=== PATIENT | female | born 1955 | race Caucasian/White ===

== ENCOUNTER 2016-08-14 08:20 | Day surgery (SDC) | payer OTHER ==
[~2016-08-14] VITALS: Ht 162.6 cm; Wt 64.5 kg
[~2016-08-14 08:20] MED LIST: CHOL200047 PO; DICL50TA7 PO; MULT-666 PO; Sodium Chloride LOK Flush 10 mL Syringe IV PRN; fentaNYL-PF 50 mCg/mL 2 mL Inj IVPUSH PRN
[2016-08-14 08:48] VITALS: BP 138/75; PULSE 60; RESP 17; O2SAT 99
[2016-08-14] MEDS: 0.9% Sodium Chloride 1,000 ML IV SCH ×2 (09:58→10:02)
[2016-08-14 10:11] VITALS: BP 110/67; PULSE 67; RESP 14; O2SAT 97
[2016-08-14 10:21] VITALS: BP 126/71; PULSE 56; RESP 12; O2SAT 98
[2016-08-14 10:31] VITALS: BP 135/69; PULSE 59; RESP 12; O2SAT 99
--- NOTE | 2016-08-14 10:31 | ENDO ---
[address] [address] ENDOSCOPY PROCEDURE PATIENT: SAHNNA ARMSTRONG : 1955 MR#: [id number] ADMIT: 08/14/2016 JOB ID: [id number] PROCEDURE: Colonoscopy. INDICATION: Screening. ASA CLASSIFICATION: 2. MALLAMPATI SCORE: 2. MEDICATIONS: Versed 5 mg, fentanyl 100 mcg. INSTRUMENT USED: PCF-H180-AL. PREPARATION QUALITY: Good. PROCEDURE DETAILS: After informed consent was obtained, the patient was brought into the GI suite, where she was placed on oxygen via nasal cannula and monitored with continuous pulse oximeter, telemetry, and blood pressure monitoring. A time-out was performed. Then, she was placed in a left lateral decubitus position and medications were administered for sedation. Digital rectal exam was performed, which was unremarkable. The colonoscope was then inserted into the rectum and advanced under direct visualization to the cecum, which was identified by the presence of the ileocecal valve and appendiceal orifice. Once the cecum was reached, the colonoscope was withdrawn back to the rectum as the mucosa and lumen were examined. In the rectum, retroflexion was performed. Following retroflexion, remaining air in the rectum was suctioned, and procedure was completed. FINDINGS: 1. Scattered diverticula were seen throughout the entire colon. 2. In the transverse colon, there was an approximately 4 mm sessile polyp that was removed with a cold snare. IMPRESSION: 1. Transverse colon polyp. 2. Pandiverticulosis. RECOMMENDATIONS: 1. Fiber rich diet. 2. Repeat colonoscopy pending polyp pathology results. COMPLICATIONS: None. ESTIMATED BLOOD LOSS: Less than 5 mL.
[2016-08-14 10:40] VITALS: BP 140/72; PULSE 64; RESP 14; O2SAT 98
[2016-08-14 10:50] VITALS: BP 146/73; PULSE 55; RESP 14; O2SAT 98
--- NOTE | 2016-08-16 18:20 | PATH ---
SURGICAL PATHOLOGY Attending Physician:Reny Jenkins CASE STATUS: Signed Out PATIENT NAME: SHANNA ARMSTRONG PID: [id number] : 1955 DATE COLLECTED:08/14/2016 17:20 SPECIMEN: Colon, Biopsy CLINICAL HISTORY: COLON POLYPS 1). TRANSVERSE COLON POLYP FINAL DIAGNOSIS: Transverse Colon, Polyp, Biopsy: Polypoid portion of colorectal mucosa with features of inflammatory pseudopolyp. No dysplasia identified. ICD10: K63.5 GROSS DESCRIPTION: The specimen is received in one formalin filled container labeled with the patient's name, sublabeled "transverse colon polyp" and consists of a 0.3 x 0.3 x 0.2 CM portion of tissue which is entirely submitted in one cassette. 08/14/2016 [facility] ICD-9 CODES: CPT CODES: 1: 83662 Electronically Signed Out Johanne Fowler MD [facility] [address], [place] [address] Technical component performed at [facility], [facility] [address], [place], [address]
== END 2016-08-14 23:59 | disposition home or self-care (01) ==
LOC: END 08:20
PROVIDERS: ATTEND Internal Medicine Gastroenterology
DX: Z12.11 Encounter for screening for malignant neoplasm of colon (principal); Z86.010 Personal history of colon polyps; K63.5 Polyp of colon; M19.90 Unspecified osteoarthritis, unspecified site; K57.30 Diverticulosis of large intestine without perforation or abscess without bleeding
CPT/HCPCS: 45385; 99152; J7030